=== PATIENT | male | born 1930 | race Caucasian/White ===

== ENCOUNTER 2017-01-25 08:07 | Day surgery (SDC) | payer MEDICARE, MEDICAID ==
[2017-01-25 08:36] LABS: *BILIRUBIN,URIN NEGATIVE (NEGATIVE); *BLOOD, URINE NEGATIVE (NEGATIVE); *CLARITY,URINE CLEAR (CLEAR); *COLOR,URINE YELLOW (YELLOW); *KETONES,URINE NEGATIVE (NEGATIVE); *PROTEIN,URINE NEGATIVE (NEGATIVE); *UROBILINOGEN,URINE 0.2 E.U./dl (NORMAL); LEUKOCYTE ESTERASE ,URINE NEGATIVE (NEGATIVE); NITRITE, URINE NEGATIVE (NEGATIVE); PH,URINE 5.5 (5.0-8.0); UGLUCOSE NEGATIVE (NEGATIVE)
[2017-01-25 08:51] LABS: BACTERIA,URINE NONE SEEN /HPF (NONE SEEN); MUCUS,URINE FEW /LPF (0-FEW); RBC,URINE NONE SEEN /HPF (0-3); SQUAMOUS EPITHELIAL CELL,UR FEW /HPF (NONE SEEN); WBC,URINE 0-3 /HPF (0-3)
[2017-01-25 08:53] LABS: CREATININE 0.9 mg/dL (0.6-1.3); POTASSIUM 3.7 mmol/L (3.5-5.1)
[2017-01-25 09:13] LABS: HEMATOCRIT 34.5 % (40-50); HEMOGLOBIN 11.6 G/DL (14.0-18.0); MEAN CORPUSCULAR HEMOGLOBIN 32.2 UUG (27.0-31.0); MEAN CORPUSCULAR HGB CONC 34 g/dL (32.0-37.0); MEAN CORPUSCULAR VOLUME 95.3 FL (82.0-92.0); PLATELET COUNT (AUTO) 367 K/UL (150-450); RED BLOOD CELL COUNT(AUTO) 3.61 MIL/UL (4.7-6.1); RED CELL DISTRIBUTION WIDTH 17.8 % (11.5-14.5); WHITE BLOOD COUNT (AUTO) 5.9 K/UL (4.0-11.2)
[2017-01-25 09:59] LABS: BAND % (MANUAL) 12 % (0-10); EOSINOPHILS % (MANUAL) 2 % (0-8); LYMPHOCYTES % (MANUAL) 38 % (20-40); METAMYELOCYTES % 1 % (0-1); MONOCYTES % (MANUAL) 15 % (2-10); MYELOCYTES % 3 % (0-0); NEUTROPHILS % (MANUAL) 29 % (42-75)
[2017-01-25 10:01] LABS: ANISOCYTOSIS 1+; PLATELET ESTIMATE ADEQU
[2017-01-25 10:02] LABS: OVALOCYTES 1+
[2017-01-25] MEDS ORDERED: EPINEPHRINE 1 MG/1 ML AMP ONE (10:19)
[2017-01-25] MEDS ORDERED: LIDOCAINE-MPF 2% 5 ML VIAL ONE (10:19)
[2017-01-25] MEDS ORDERED: NEO/POLYMYX B/DEXAME OPHT OINT 3.5 GM TUBE ONE (12:14)
[2017-01-25] MEDS ORDERED: LIDOCAINE 2%-EPI 1:100,000 20 ML VIAL ONE (12:14)
[2017-01-25] MEDS ORDERED: BUPIVACAINE/EPI PF 0.5% 10 ML VIAL ONE (12:14)
[2017-01-25] MEDS ORDERED: FENTANYL CITRATE 100 MCG/2 ML AMPUL ONE (13:55)
[2017-01-25] MEDS ORDERED: SEVOFLURANE 250 ML BOTTLE IH ONE (15:12)
[2017-01-25] MEDS ORDERED: DEXAMETHASONE SOD PHOSPHATE 4 MG INJ IV ONE (15:12)
[2017-01-25] MEDS ORDERED: LIDOCAINE HCL 1% 20 ML VIAL MC ONE (15:12)
[2017-01-25] MEDS ORDERED: ONDANSETRON 4 MG/2 ML VIAL IV ONE (15:13)
[2017-01-25] MEDS ORDERED: PROPOFOL 200 MG/20 ML BOTTLE IV ONE (15:13)
[2017-01-25] MEDS ORDERED: IV LACTATED RINGERS SOLUTION 1,000 ML BAG IV ONE (15:13)
== END 2017-01-25 15:10 | disposition home or self-care (01) ==
LOC: DS 08:07
PROVIDERS: ATTEND Dermatology MOHS-Micrographic Surgery
DX: Z87.891 Personal history of nicotine dependence (principal)
CPT/HCPCS: 36415; 71010; 85025; 85730; 93005; A4663; J0171; J1100; J2405; J3010; J3490; J7120